=== PATIENT | male | born 1980 | race Caucasian/White ===

== ENCOUNTER 2020-11-12 22:28 | Emergency (ER) | payer OTHER ==
[~2020-11-12] VITALS: Ht 190.5 cm; Wt 88.0 kg
[2020-11-13] MEDS ORDERED: SODIUM CHLORIDE 0.9% 1,000 ML IV ONE (00:45)
[2020-11-13] MEDS ORDERED: KETOROLAC 30MG/ML VIAL IV ONE (01:15)
[2020-11-13 01:25] LABS: CLARITY URINE TURBID (CLEAR); COLOR URINE YELLOW (YELLOW); KETONES URINE NEGATIVE (NEGATIVE); LEUKOCYTE ESTERASE URINE NEGATIVE (NEGATIVE); NITRITE URINE NEGATIVE (NEGATIVE); OCCULT BLOOD URINE NEGATIVE (NEGATIVE); PH URINE 7.5 (4.5-8.0); PROTEIN URINE NEGATIVE (NEGATIVE); SPECIFIC GRAVITY URINE 1.018 (1.005-1.030); UROBILINOGEN URINE 0.2 E.U./dL (0.2-1.0)
[2020-11-13 01:34] LABS: *AMPHETAMINES SCREEN URINE NEGATIVE (NEGATIVE); *BARBITURATES SCREEN URINE NEGATIVE (NEGATIVE)
[2020-11-13 01:35] VITALS: BP 126/79
[2020-11-13 01:35] LABS: *BENZODIAZEPINES SCREEN URINE NEGATIVE (NEGATIVE); *COCAINE SCREEN URINE NEGATIVE (NEGATIVE); CANNABINOID URINE SCREEN NEGATIVE (NEGATIVE); METHADONE URINE SCREEN NEGATIVE (NEGATIVE); OPIATES URINE SCREEN NEGATIVE (NEGATIVE); PHENCYCLIDINE URINE SCREEN NEGATIVE (NEGATIVE)
[2020-11-13 01:37] LABS: BASOPHILS % 0.4 % (0.0-2.0); EOSINOPHILS % 2.2 % (0.0-5.0); HEMATOCRIT. 39.7 % (42.0-52.0); HEMOGLOBIN. 13.4 g/dL (14.0-18.0); LYMPHOCYTES % 39.2 % (20.0-50.0); MEAN CORPUSCULAR HEMOGLOBIN 29.5 pg (28.0-32.0); MEAN CORPUSCULAR VOLUME 87.5 fL (80.0-94.0); MEAN PLATELET VOLUME 8.2 fl (7.4-10.4); MONOCYTES % 10.3 % (2.0-8.0); NEUTROPHILS % 47.9 % (40.0-76.0); PLATELET 227 x1000/uL (130-400); RED BLOOD CELL COUNT 4.54 mill/uL (4.7-6.1); RED CELL DISTRIBUTION WIDTH 13.1 % (11.6-14.6)
[2020-11-13 01:47] LABS: PROTHROMBIN TIME 10.9 sec (9.6-11.0)
[2020-11-13 01:48] LABS: CHLORIDE 104 mEq/L (98-107)
[2020-11-13] MEDS ORDERED: ONDA4TAB5 MT (02:55)
[2020-11-13] MEDS ORDERED: POLY17PO3 MT (02:55)
== END 2020-11-13 03:14 | disposition home or self-care (01) ==
LOC: ER 22:28
DX: K59.00 Constipation, unspecified (principal); R11.10 Vomiting, unspecified; F41.9 Anxiety disorder, unspecified; F32.9 Major depressive disorder, single episode, unspecified; F43.10 Post-traumatic stress disorder, unspecified; I25.2 Old myocardial infarction; Z90.49 Acquired absence of other specified parts of digestive tract
CPT/HCPCS: 36415; 74176; 80053; 80305; 81003; 83690; 85025; 85610; 93005; 96361; 96374; 99285; J1885; J7030

== ENCOUNTER 2020-11-26 10:31 | Emergency (ER) | payer OTHER ==
[~2020-11-26] VITALS: Ht 190.5 cm; Wt 91.0 kg
[~2020-11-26 10:31] MED LIST: ONDA4TAB5 MT; POLY17PO3 MT
[2020-11-26] MEDS ORDERED: DOXY100C2 MT (11:29)
[2020-11-26] MEDS ORDERED: CEFTRIAXONE SODIUM 500 MG/VIAL IM ONE (11:30)
[2020-11-26] MEDS ORDERED: LIDOCAINE HCL 1% 20ML VIAL (Pyxis) INJ INFIL ONE (11:30)
[2020-11-26 11:55] VITALS: BP 106/66
[2020-11-28 04:10] LABS: NEISSERIA GONORRHOEAE NAA Negative (Negative)
== END 2020-11-26 11:56 | disposition home or self-care (01) ==
LOC: ER 10:31
DX: A64 Unspecified sexually transmitted disease (principal); I25.2 Old myocardial infarction; Z88.5 Allergy status to narcotic agent; Z90.49 Acquired absence of other specified parts of digestive tract
CPT/HCPCS: 87491; 87591; 96372; 99283; J0696; J3490